=== PATIENT | male | born 1960 | race Caucasian/White ===

== ENCOUNTER 2016-09-16 11:28 | Emergency (ER) | payer OTHER ==
[~2016-09-16] VITALS: Wt 85.5 kg
[~2016-09-16 11:28] MED LIST: METAMUCIL
[2016-09-16] MEDS ORDERED: CEPH-443 PO (14:45)
[2016-09-16] MEDS ORDERED: CLIN-73 PO (14:57)
--- NOTE | 2016-09-16 15:04 | ERD ---
ER Documentation Chief Complaint Date/Time DATE: 09/16/16 TIME: 14:59 Chief Complaint SUTURE SITE POSSIBLE REDNESSS NO BLEEDING. NEEDS SUTURES REMOVED HPI This a 56-year-old male who presents to the emergency department today for suture removal. Patient states he had hernia surgery in [place] on September 04 and was told to return in 8 days for suture removal however when he returned they told him that the sutures were not ready to come out and to return in a couple days. Patient states he had a flight home the next day. Patient states that he decided to try to take out the suture himself and cut one end of the sutures. States he had subcuticular intradermal suture. Patient states he went to a primary care clinic and was told that they could not do the suture removal and that he needed to come to the emergency room for the suture removal and that we would make an incision to cut out the suture. States he is taking clindamycin and Naprosyn. Denies any fevers or chills. ROS All systems reviewed and are negative except as per history of present illness. Medications Home Meds Active Scripts Clindamycin Hcl* (Clindamycin Hcl*) 300 Mg Capsule, 300 MG PO TID for 5 Days, CAP Prov:EMMA LAC 09/16/16 Reported Medications [Metamucil] No Conflict Check 10/09/15 Discontinued Scripts Cephalexin* (Keflex*) 500 Mg Capsule, 500 MG PO QID for 7 Days, CAP Prov:EMMA LAC 09/16/16 Allergies Allergies: Coded Allergies: No Known Allergy (Unverified , 10/09/15) PMhx/Soc History of Surgery: No Anesthesia Reaction: No Hx Neurological Disorder: No Hx Respiratory Disorders: No Hx Cardiac Disorders: No Hx Psychiatric Problems: No Hx Miscellaneous Medical Probl: No Hx Alcohol Use: No Hx Substance Use: No Hx Tobacco Use: Yes Smoking Status: Former smoker Physical Exam Vitals Vital Signs Date Time Temp Pulse Resp B/P Pulse Ox O2 Delivery O2 Flow Rate FiO2 09/16/16 11:32 97.5 53 20 129/75 99 Physical Exam Const: NAD Head: Atraumatic Eyes: Normal Conjunctiva ENT: Normal External Ears, Nose and Mouth. Neck: Full range of motion..~ No meningismus. Resp: Clear to auscultation bilaterally Cardio: Regular rate and rhythm, no murmurs Abd: Soft, non tender, non distended. Normal bowel sounds Skin: Evidence of subcuticular suture. No erythema or warmth. Wound well- healed and well approximated. No purulent drainage. Neur: Awake and alert Psych: Normal Mood and Affect Procedures/MDM This is a 56-year-old male who presents the emergency department today for suture removal. Patient had sutures placed on September 04 for hernia surgery. Patient tried to remove the sutures himself after being unable to have them removed in [place] and cut one end of the sutures. Patient has evidence of a subcuticular suture. I did try to cut one side of the suture however I was unable to pull the suture out. I have explained to the patient that I will not be making an incision to look for the buried suture that he cut the other end of. I have explained to the patient he needs to follow back up with his primary care clinic for referral to general surgery. I explained to him that I understand that his primary care clinic will not do it however he will need referral. I have also given him a list of referral information. Patient is afebrile and otherwise well-appearing. Low suspicion for sepsis, deep space infection, cellulitis. There is no erythema or warmth. Patient was wanting more antibiotics as he only had a few days of antibiotics. I did give him 5 more days of clindamycin. Patient had been taking that as a prescription from [place]. Dr. Barnes has seen and evaluated the patient is in agreement with the plan. At this time the patient is stable for discharge and outpatient management. Patient should follow up with their PCP in the next 1-2 days. They may return to the emergency department sooner for any persistent or worsening of symptoms. Patient understood and agreed with the plan. Departure Diagnosis: Primary Impression: Encounter for removal of sutures Condition: Fair Patient Instructions: Suture Care Referrals: IAN CARTER (PCP) Lee Ann BRUNO PHILIP MD DEL JUNCO, TIRSO MD EILBER,ROBERTO GOYAL MD, DANIEL S M.D. HEMMATI, SAID MD JIMENEZ,LESLEY DINH MD, SHELLEY B. PA KOSARI, KAMBIZ M.D. LOMIS, THOMAS MD Additional Instructions: Llame al doctor MAANA y keturah hernando WINNIE PARA DENTRO DE 1-2 BERGERON.Dgale a la secretaria que nosotros le instruimos hacer esta winnie for referral to general surgery.Avise o llame si zamora condicin se empeora antes de la winnie. Regresa aqui si peor o no mejor. Continue taking your antibiotics as prescribed PROUSE,EMMA Dobson PA-C Sep 16, 2016 15:04
== END 2016-09-16 15:12 | disposition home or self-care (01) ==
LOC: FTE 11:28
DX: Z48.01 Encounter for change or removal of surgical wound dressing (principal); Z87.891 Personal history of nicotine dependence
CPT/HCPCS: 99283